=== PATIENT | female | born 1950 | race Caucasian/White ===

== ENCOUNTER → 2020-08-09 13:32 | Outpatient (CLI) | payer MEDICARE, SELFPAY ==
--- NOTE | ~2020-08-09 | MR_ITS ---
EXAMINATION: MR knee RT wo con DATE: 08/09/2020 14:15 INDICATION: Right knee pain and swelling TECHNIQUE: Magnetic resonance imaging (MRI) of the right knee was performed without intravenous contr ast. Sequences included coronal PD-weighted FSE, coronal PD-weighted FS FSE, sagittal T2-weighted FS E, sagittal PD-weighted FS FSE and axial PD weighted fat saturated FSE. COMPARISON: None. FINDINGS: Medial compartment: Medial meniscus is normal. Partial-thickness cartilage loss with mild chondral surface irregularity a t the anterior weightbearing medial femoral condyle. Lateral compartment: Lateral meniscus is normal. Articular cartilage is normal. Patellofemoral compartment: Deeper chondral fissuring involving greater than 50% the cartilage thickness at the central aspect of the medial patellar facet. Shallow chondral fissuring at the lateral facet. Trochlear cartilage is n ormal. Ligaments and tendons: Anterior and posterior cruciate ligaments are normal. The medial collateral ligament and fibular stella ateral ligament complex are normal. The extensor mechanism is normal. The visualized medial and later al hamstring tendons as well as the iliotibial band are normal. Fluid: Physiologic amount of fluid in the joint space. No loose osteochondral bodies identified. Osseous/other: There is a small minimally distracted avulsion fracture segment along the lateral margin of the cleary la with thickening and mild increased signal of the lateral patellofemoral retinaculum. There is diaz yanely minimal associated marrow edema. No other fractures identified. There is edema in the infrapatell ar fat pad along the inferolateral margin of the patella. IMPRESSION: 1. Partial tear of the medial aspect of the lateral patellofemoral retinaculum with minimal distracti on of a small avulsion fracture along the lateral margin of the patella. Reviewed, dictated and finalized at location A. PASTOR IMPRESSION: 1. Partial tear of the medial aspect of the lateral patellofemoral retinaculum with minimal distraction of a small avulsion fracture along the lateral margin of the patella.
== END ==
PROVIDERS: PCP Internal Medicine; Visit Provider Nurse Practitioner Family
DX: M25.561 Pain in right knee (principal); S83.8X1A Sprain of other specified parts of right knee, initial encounter
CPT/HCPCS: 73721

== ENCOUNTER 2022-06-13 10:59 | Outpatient (CLI) | payer MEDICARE, SELFPAY | END 2022-06-13 11:00 | disposition home or self-care (01) | LOC: ANHAUDIO 11:01 | PROVIDERS: PCP Physician Assistant Medical; Visit Provider Physician Assistant Medical | DX: H90.41 Sensorineural hearing loss, unilateral, right ear, with unrestricted hearing on the contralateral side (principal); H90.72 Mixed conductive and sensorineural hearing loss, unilateral, left ear, with unrestricted hearing on the contralateral side | CPT/HCPCS: 92557; 92567 ==

== ENCOUNTER 2024-05-21 08:45 | Outpatient (RCR) | payer MEDICARE, SELFPAY ==
--- NOTE | 2024-04-30 14:52 | PTOPEVAL1 ---
Assessment and note entered by Maria E Lopez PT Evaluation Information Assessment Status Evaluation ICD-10 Condition Codes (PT) Pain in low back M54.50 Onset approx 5 weeks Subjective Information Pt reports pain to lowback area, concentrated in the tailbone area. states she had fallen and several near fall incidents in the last month. Reports experienced a very stressful life event which aggravates the pain and general body tension . States her helps her in walking every morning, almost everyday. Increased pain with initial walking but eases away throughout the day. Denies radiating down to legs at this time. Reported Pain Level Pain Score 2: Self Report Pain Score 4: Self Report Additional Pain Score Comments 9-10/10 with spasms increased during walking and 3-4/10 with prolonged standing (1 hr) Assessment PT Clinical Summary Pt is a 74 yo female who presents to therapy with c/o back pain worse when leaning back, standing and walking for longer periods of time; limited ROM, weakness and muscle imbalance, unsteadiness with h/o vertigo, unsteadiness and dizziness with head turns to the L side when laying down, noted compensated Trendelenburg gait pattern. Reports experiencing falls and or near falls the past month, does not use AD at this time. She would greatly benefit from skilled PT to manage pain, improve ROM, improve balance and gait and reduce risk for falls to allow her to perform IADLs, functional mobility safely and pain free. Plan of Care Interventions Electrical Stimulation,Gait Training,Hot Pack/Cold Pack,Manual Therapy,Mechanical Traction,Neuro Re- education,Patient/Caregiver Education,Therapeutic Activities,Therapeutic Exercise,Ultrasound Other Interventions IAS PT Services Indicated Yes Treatment Frequency and 2x/wk x 10 visits Duration These treatments will address the objective and functional deficits as defined above. The patient will be advanced safely and appropriately in order for the patient to progress towards his/her prior level of function. Additional exercises will be introduced and as well as a comprehensive home exercise program upon discharge, if needed, ?to ensure carryover of functional gains achieved in the clinic. This treatment plan has been reviewed and agreement upon by the patient.
--- NOTE | 2024-04-30 16:45 | OPREHPOC ---
Outpatient Therapy Plan of Care This is a Multidisciplinary Plan of Care that may contain components documented by all disciplines (PT, OT, and ST.) PT Problem 1 PT Problem #1 Knowledge Deficit PT Goal 1 Goal Pt will demo HEPs for lumbar stabilization, BLE flexibility and strengthening; Balance exercises Target Visit 10 PT Problem 2 PT Problem #2 Pain PT Goal 1 Goal Pt will report 0/10 pain to lowback area at worst when performing standing and walking tasks. Target Visit 10 PT Problem 3 PT Problem #3 Impaired Balance PT Goal 1 Goal Pt will report 21/24 or more on Tinetti Assessment Score to reduce risk for falls Target Visit 10 PT Problem 4 PT Problem #4 Impaired Range of Motion PT Goal 1 Goal Pt will demo WNL lumbar ROM Target Visit 10 PT Problem 5 PT Problem #5 Impaired Gait PT Goal 1 Goal Pt will demo normalized gait pattern, able to stand on 1 leg x 15 seconds or more without pelvic drop. Target Visit 10
--- NOTE | 2024-04-30 16:51 | PCPTNOTE ---
Goals related to 04/21/2024 evaluation.
--- NOTE | 2024-04-30 16:53 | PCPTNOTE ---
addendum: goals for 04/21/2024 evaluation
--- NOTE | 2024-07-10 11:14 | PTOPDC ---
Assessment and note entered by Maria E Lopez, PT Evaluation Information Assessment Status Discharge - Pt Not Presen ICD-10 Condition Codes (PT) Pain in low back M54.50 Onset approx 5 weeks Subjective Information Pt reports pain to lowback area, concentrated in the tailbone area. states she had fallen and several near fall incidents in the last month. Reports experienced a very stressful life event which aggravates the pain and general body tension . States her helps her in walking every morning, almost everyday. Increased pain with initial walking but eases away throughout the day. Denies radiating down to legs at this time. Assessment PT Clinical Summary Pt received a total of 6 skilled PT treatment sessions and has showed early gains and was progressing towards goals. However, she has had multiple cancellation and re-scheduling due to being sick with COVID. She also did not show up for her scheduled re-eval on 05/26 due to having a headache. The office called and reached out multiple times but was unsuccessful. Pt discharged at this time. Plan of Care PT Services Indicated No
== END 2024-07-13 16:18 | disposition home or self-care (01) ==
LOC: ANHHIPT 08:45
PROVIDERS: PCP Physician Assistant Medical; Visit Provider Family Medicine
DX: M54.50 Low back pain, unspecified (principal)
CPT/HCPCS: 97014; 97035; 97110; 97140; 97161; 97750; G0283